=== PATIENT | male | born 1985 | race Caucasian/White ===

== ENCOUNTER 2023-04-18 04:12 | Inpatient (IN) | payer SELFPAY ==
[~2023-04-18] VITALS: Ht 172.7 cm; Wt 73.7 kg
[2023-04-18 06:14] LABS: COVID AG,FIA SOURCE NASAL SWAB
[2023-04-18 06:21] LABS: BASOPHILS % (AUTO) 0.3 % (0.0-2.0); EOSINOPHILS % (AUTO) 0 % (1.0-6.0); HEMOGLOBIN 14.5 g/dL (13.5-17.5); LYMPHOCYTES # (AUTO) 1.2 K/uL (1.0-4.8); LYMPHOCYTES % (AUTO) 9.4 % (22.0-44.0); MEAN CORPUSCULAR HEMOGLOBIN 32.7 pg (26.0-34.0); MEAN CORPUSCULAR HGB CONC 34.6 G/dL (31.0-37.0); MEAN CORPUSCULAR VOLUME 95 fL (80-100); MONOCYTES # (AUTO) 0.5 K/uL (0.1-1.0); MONOCYTES % (AUTO) 4.2 % (2.0-9.0); NEUTROPHILS # (AUTO) 11.2 K/uL (1.8-7.7); PLATELET COUNT (AUTO) 283 K/uL (150-450); RED BLOOD CELL COUNT(AUTO) 4.44 MIL/uL (4.50-5.90)
[2023-04-18 06:22] LABS: NEUTROPHILS % (AUTO) 86.1 % (40.0-70.0)
[2023-04-18 06:27] LABS: ANION GAP 16 mmol/L (8-16); CALCIUM, TOTAL 8.6 mg/dL (8.8-10.5); CARBON DIOXIDE 22 mmol/L (22-29); CHLORIDE 105 mmol/L (98-107); CREATININE 1.07 mg/dL (0.60-1.30); GLOMERULAR FILTR. RATE CALC > 60 mL/min (>60); GLUCOSE,RANDOM 128 mg/dL (70-110); POTASSIUM 3.5 mmol/L (3.5-5.1); SODIUM SERUM 142 mmol/L (136-145); UREA NITROGEN, BLOOD 7 mg/dL (7-18)
[2023-04-18 06:31] LABS: ALCOHOL, BLOOD (SERUM) 154 mg/dL (0-10)
[2023-04-18 06:33] LABS: ALANINE AMINOTRANSFERASE 25 U/L (12-78); ALBUMIN 4.7 g/dL (3.4-5.0); ALKALINE PHOSPHATASE 73 U/L (46-116); ASPARTATE AMINOTRANSFERASE 24 U/L (15-37); BILIRUBIN,TOTAL 0.3 mg/dL (0.1-1.0); TOTAL PROTEIN, SERUM 8.3 g/dL (6.4-8.2)
[2023-04-18 06:42] LABS: SARS-COV2 (COVID) ANTIGEN,FIA Negative (Negative)
[2023-04-18 07:26] LABS: ALCOHOL, URINE DRUG SCREEN POSITIVE (NEGATIVE); AMPHET/METH SCREEN,URINE NEGATIVE (NEGATIVE); BARBITURATE SCREEN, URINE NEGATIVE (NEGATIVE); BENZODIAZEPINES SCREEN,URINE NEGATIVE (NEGATIVE); CANNABINOID SCREEN,URINE NEGATIVE (NEGATIVE); COCAINE SCREEN,URINE POSITIVE (NEGATIVE); METHADONE SCREEN, URINE NEGATIVE (NEGATIVE); OPIATE SCREEN,URINE NEGATIVE (NEGATIVE); PHENCYCLIDINE SCREEN,URINE NEGATIVE (NEGATIVE)
[2023-04-18] MEDS ORDERED: HALOPERIDOL 5 MG TABLET PO PRN (09:15)
[2023-04-18] MEDS ORDERED: LORazepam 2 MG TABLET PO PRN (09:15)
[2023-04-18] MEDS ORDERED: ZOLPIDEM TARTRATE 10 MG TABLET PO PRN (09:15)
[2023-04-18] MEDS: ACETAMINOPHEN 500 MG TABLET PO PRN ×2 (10:54→20:58)
[2023-04-18] MEDS ORDERED: IBUPROFEN 600 MG TABLET PO ONE (11:00)
[2023-04-18 15:27] VITALS: BP 146/82; PULSE 72; RESP 18; TEMP 97.6
[2023-04-18] MEDS ORDERED: PNEUMOCOCCAL VACCINE POLYVALENT 0.5 ML SYRINGE [PPSV23] IM. ONE (16:45)
[2023-04-18] MEDS ORDERED: INFLUENZA VIRUS VACCINE QVS 2023-24 (6MO+)/PF 60 MCG/0.5 ML SYRINGE IM. ONE (16:45)
[2023-04-18 20:53] VITALS: BP 153/76; PULSE 78; RESP 18; TEMP 97.6
[2023-04-19 08:09] VITALS: BP 141/76; PULSE 66; RESP 18; TEMP 97.7
[2023-04-19] MEDS ORDERED: MAGNESIUM HYDROXIDE SUSPENSION 30 ML UDCUP PO PRN (15:15)
[2023-04-19] MEDS ORDERED: ONDANSETRON HCL 4 MG TABLET PO PRN (15:15)
[2023-04-19] MEDS ORDERED: ACETAMINOPHEN 325 MG TABLET PO PRN (15:15)
[2023-04-19] MEDS ORDERED: IBUPROFEN 400 MG TABLET PO PRN (15:15)
[2023-04-19] MEDS ORDERED: PETROLATUM,WHITE 28 GM JELLY TP PRN (15:15)
[2023-04-19] MEDS ORDERED: MAG HYDROX/ALUMINUM HYD/SIMETH ES 30 ML SUSPENSION UDCUP PO PRN (15:15)
[2023-04-19] MEDS ORDERED: DOCUSATE SODIUM 100 MG CAPSULE PO PRN (15:15)
[2023-04-19] MEDS ORDERED: ALBUTEROL SULFATE HFA 90 MCG/PUFF 8 GM INHALER IH PRN (15:15)
[2023-04-19] MEDS ORDERED: GuaiFENesin/D-METHORPHAN [SUGAR-FREE] 200-20MG/10 ML SYRUP UDCUP PO PRN (15:15)
[2023-04-19] MEDS ORDERED: LOPERAMIDE HCL 2 MG CAPSULE PO PRN (15:15)
[2023-04-19] MEDS ORDERED: NICOTINE 14 MG/24 HOUR PATCH TD PRN (15:15)
[2023-04-19] MEDS ORDERED: CloNIDine HCL 0.1 MG TABLET PO PRN (15:15)
[2023-04-19 21:00] VITALS: BP 125/76; PULSE 70; RESP 18; TEMP 98.8
[2023-04-20 07:20] LABS: THYROID STIMULATING HORMONE 1.21 uIU/mL (0.36-3.74)
[2023-04-20 07:21] LABS: HEMOGLOBIN A1C 5.1 % (3.8-5.6)
[2023-04-20 08:14] VITALS: BP 114/65; PULSE 62; RESP 18; TEMP 97.8
[2023-04-21 11:08] LABS: CHOL/HDL RATIO 3.1 (4.2-7.3)
== END 2023-04-20 13:40 | disposition home or self-care (01) | DRG 885 ==
LOC: EMS 04:14 → 3EC 13:41
PROVIDERS: ADMIT Psychiatry & Neurology Child & Adolescent Psychiatry; ATTEND Psychiatry & Neurology Child & Adolescent Psychiatry
DX: F33.2 Major depressive disorder, recurrent severe without psychotic features (principal); R45.851 Suicidal ideations; F43.0 Acute stress reaction; R73.9 Hyperglycemia, unspecified; R03.0 Elevated blood-pressure reading, without diagnosis of hypertension; D72.829 Elevated white blood cell count, unspecified; F14.10 Cocaine abuse, uncomplicated; F10.929 Alcohol use, unspecified with intoxication, unspecified; Z20.822 Contact with and (suspected) exposure to COVID-19; S10.93XA Contusion of unspecified part of neck, initial encounter; S20.319A Abrasion of unspecified front wall of thorax, initial encounter; X58.XXXA Exposure to other specified factors, initial encounter; Y93.89 Activity, other specified; Y92.89 Other specified places as the place of occurrence of the external cause; Y99.8 Other external cause status
CPT/HCPCS: 80053; 80061; 80307; 83036; 84443; 85025; 99285; G0480